=== PATIENT | female | born 1995 | race Caucasian/White ===

== ENCOUNTER 2016-10-18 13:52 | Emergency (ER) | payer SELFPAY ==
[2016-10-18 13:54] VITALS: BP 142/72; PULSE 104; RESP 16; TEMP 97.8; O2SAT 98
== END 2016-10-18 16:00 | disposition left against medical advice (07) ==
LOC: NED 13:52
DX: M25.512 Pain in left shoulder (principal); Z53.21 Procedure and treatment not carried out due to patient leaving prior to being seen by health care provider
CPT/HCPCS: 99281